=== PATIENT | female | born 1940 | race African-American/Black ===

== ENCOUNTER 2016-12-01 10:02 | Emergency (ER) | payer OTHER ==
[2016-12-01 10:23] VITALS: TEMP 98.9
--- NOTE | 2016-12-01 10:29 | PDOC ---
History of Present Illness - General Chief Complaint: Blood Pressure Problem Stated Complaint: high blood pressure Time Seen by Provider: 12/01/16 10:26 - History of Present Illness Initial Comments: 12/01/16 11:14 Patient is a 76 year old female with a history of HTN, Hypothyroid and Anxiety who presents with high blood pressure. Patient reports a bp of 208/81 at home prompting her presentation to the ED today. She reports taking her BP medication (atenolol, hydralazine) before presentation to the ED and her mp is now 172/59 . She states that she was concerned about the reasoning for her high BP. She also notes that she was scheduled to have a tooth extraction today. She denies any headache, fevers, chills, chest pain, SOB, abdominal pain , nausea, vomiting, or changes with urination or bowel movements. Past History - Past Medical History Allergies/Adverse Reactions: Allergies Allergy/AdvReac Type Severity Reaction Status Date / Time No Known Allergies Allergy Verified 12/01/16 10:16 Home Medications: Ambulatory Orders Atenolol [Tenormin -] 25 mg PO DAILY 03/27/15 Levothyroxine [Synthroid -] 50 mcg PO DAILY 03/27/15 Hydralazine HCl [Apresoline -] 50 mg PO DAILY 12/01/16 HTN: Yes Suicide Attempt (Hx): No Seizures: No Thyroid Disease: Yes - Psycho/Social/Smoking Cessation Hx Anxiety: No Suicidal Ideation: No Smoking History: Never smoked Have you smoked in the past 12 months: No Information on smoking cessation initiated: No Hx Alcohol Use: Yes (social) Drug/Substance Use Hx: No Substance Use Type: None Review of Systems - Review of Systems Constitutional: No: Chills, Fever, Weakness HEENTM: No: Nose Congestion, Throat Swelling Respiratory: No: Cough, Shortness of Breath, Wheezing Cardiac (ROS): No: Chest Pain, Palpitations, Chest Tightness ABD/GI: No: Constipated, Diarrhea, Nausea, Vomiting, Indigestion : No: Burning, Dysuria Integumentary: No: Rash Neurological: No: Headache, Tingling, Weakness *Physical Exam - Vital Signs Last Vital Signs Temp Pulse Resp BP Pulse Ox 98.9 F 63 17 172/59 98 12/01/16 10:11 12/01/16 10:11 12/01/16 10:11 12/01/16 10:11 12/01/16 10:11 - Physical Exam Comments: 12/01/16 11:22 General Appearance: Yes Nourished. No Apparent Distress HEENT: No Pharyngeal Erythema, Tonsillar Exudate, Tonsillar Erythema Respiratory/Chest: Lungs Clear, Normal Breath Sounds. No Crackles, Rales, Rhonchi, Wheezing Cardiovascular: Regular Rhythm, Regular Rate. No Murmur, Gallop/S3, Gallop/S4 Gastrointestinal/Abdominal: Normal Bowel Sounds, Soft. No Guarding, Rebound, Tenderness Extremity: Normal Capillary Refill Integumentary: Normal Color, Dry, Warm Neurologic: Fully Oriented, Alert, Normal Mood/Affect, Normal Response Medical Decision Making - Medical Decision Making 12/01/16 12:01 Patient is a 76 year old female with a history of HTN, hypothyroid, and anxiety who presents following a high blood pressure reading at home. Patient's BP improved after taking her bp medications and her repeat bp is currently 150s/ 70s. She is currently denying any other symptoms. We discussed that it is possible her high bp this morning was due to her meds not having been taken and her anxiety about her dental extraction. We feel comfortable discharging the patient home. She has follow up with her primary care provider tomorrow. She is agreeable to the plan. *DC/Admit/Observation/Transfer Diagnosis at time of Disposition: Hypertension Qualifiers: Hypertension type: unspecified Qualified Code(s): I10 - Essential (primary) hypertension - Discharge Dispostion Disposition: HOME Condition at time of disposition: Improved - Referrals Referrals: Altagracia Figueredo [Primary Care Provider] - - Patient Instructions Printed Discharge Instructions: DI for High Blood Pressure, How to Monitor Your Blood Pressure at Home Additional Instructions: Please return to the ER if you experience worsening or concerning symptoms. Please follow up with your primary care provider to discuss your ER visit. - Attestations Physician Attestion: 12/01/16 11:59 I, Dr. Unruly Haney, attest that this document has been prepared under my direction and personally reviewed by me in its entirety. I further attest, that it accurately reflects all work, treatment, procedures and medical decision -making performed by me.
--- NOTE | 2016-12-01 11:32 | PDOC ---
Attending Attestation - Resident Resident Name: Unruly Haney - ED Attending Attestation I have performed the following: I have examined & evaluated the patient, The case was reviewed & discussed with the resident, I agree w/resident's findings & plan, Exceptions are as noted - HPI HPI: 12/01/16 11:30 Agree with the resident's HPI as documented in the electronic medical record. - Physicial Exam PE: 12/01/16 11:30 Agree with the resident's physical examination as documented in the electronic medical record. - Medical Decision Making 12/01/16 11:30 76-year-old female with history of hypertension scheduled for a procedure this morning but was concerned because her blood pressure was markedly elevated at home. I have repeated the blood pressure manually in the emergency department and it is 155/68. The patient is asymptomatic and denies chest pain headache or any other complaints. Plan: 1. Discharge home 2. I have encouraged the patient to keep her follow-up appointment with her primary care physician, Dr. Suggs tomorrow as previously scheduled 3. I've advised the patient to return to the emergency department if her symptoms persist, worsen, or new symptoms arise. EKG shows sinus bradycardia at 55 bpm with a left bundle branch block and no acute ST segment changes; this is unchanged from prior EKG.
[2016-12-01 12:16] VITALS: BP 140/60; PULSE 54
--- NOTE | 2016-12-01 16:59 | EKG ---
Test Reason : Blood Pressure : / mmHG Vent. Rate : 054 BPM Atrial Rate : 054 BPM P-R Int : 208 ms QRS Dur : 126 ms QT Int : 478 ms P-R-T Axes : 080 -47 094 degrees QTc Int : 453 ms SINUS BRADYCARDIA LEFT AXIS DEVIATION LEFT BUNDLE BRANCH BLOCK ABNORMAL ECG WHEN COMPARED WITH ECG OF 25-JUL-2013 01:19, T WAVE VARIATION Confirmed by JEANIE JACOB MD ([id number]) on 12/01/2016 4:59:11 PM Referred By: Confirmed By:JEANIE JACOB MD
== END 2016-12-01 12:17 | disposition home or self-care (01) ==
LOC: JER 10:02
DX: I10 Essential (primary) hypertension (principal); E03.9 Hypothyroidism, unspecified; F41.9 Anxiety disorder, unspecified
CPT/HCPCS: 93005; 93010; 99283-25

== ENCOUNTER 2019-07-14 22:56 | Emergency (ER) | payer OTHER ==
[2019-07-14 23:06] VITALS: TEMP 98; BMI 23.4
[2019-07-14] MEDS ORDERED: ATENOLOL 25 MG TABLET (FP) PO ONE (23:49)
[2019-07-14] MEDS ORDERED: ATENOLOL 25 MG TABLET (FP) ONE (23:55)
[2019-07-15] MEDS ORDERED: ATENOLOL 25 MG TABLET (FP) PO ONE (00:15)
--- NOTE | 2019-07-15 00:15 | PDOC ---
History of Present Illness - General Chief Complaint: Blood Pressure Problem Stated Complaint: HBP/HEADACHE History Source: Patient Exam Limitations: No Limitations - History of Present Illness Initial Comments: 07/15/19 00:05 78 yo female pmh HTN, hypothyroidism and anxiety presents to the ED for 2 weeks of a persistent SOLANO, nausea without vomiting and elevated BP. Pt states she has had a constant, sharp, right sided SOLANO over the last 2 weeks and was told on a ENT evaluation 2 days ago the her BP was over 230 systolic. Pt denies any focal neurological changes including changes in vision, weakness or sensory changes, gait changes, confusion. Pt denies recent travel, sick contacts, fevers, CP, SOB , abdominal pain, back pain, changes in bowel or bladder habits 07/15/19 00:50 Pt admits to only taking amlodipine every 2 days when it is prescribed daily. Pt took amlodipine today but has not taken night time dose of Atenolol 50 mg as yet Past History - Past Medical History Allergies/Adverse Reactions: Allergies Allergy/AdvReac Type Severity Reaction Status Date / Time No Known Allergies Allergy Verified 07/14/19 23:06 Home Medications: Ambulatory Orders Atenolol [Tenormin -] 25 mg PO DAILY 03/27/15 Levothyroxine [Synthroid -] 50 mcg PO DAILY 03/27/15 hydrALAZINE HCL [Apresoline -] 50 mg PO DAILY 12/01/16 Amlodipine Besylate/Benazepril [Lotrel 10-20 mg Capsule] 1 cap PO DAILY Oxybutynin Chloride [Oxybutynin Chloride ER] 10 mg PO DAILY 07/15/19 COPD: No HTN: Yes Seizures: No Thyroid Disease: Yes - Immunization History Immunization Up to Date: Yes - Psycho Social/Smoking Cessation Hx Smoking History: Never smoked Have you smoked in the past 12 months: No Information on smoking cessation initiated: No Hx Alcohol Use: No Drug/Substance Use Hx: No Substance Use Type: None Review of Systems - Review of Systems Constitutional: Yes: See HPI HEENTM: Yes: See HPI Respiratory: Yes: See HPI Cardiac (ROS): Yes: See HPI ABD/GI: Yes: See HPI : Yes: See HPI Musculoskeletal: Yes: See HPI Integumentary: Yes: See HPI Neurological: Yes: See HPI *Physical Exam - Vital Signs Last Vital Signs Temp Pulse Resp BP Pulse Ox 98.0 F 62 18 211/87 H 100 07/14/19 23:04 07/14/19 23:04 07/14/19 23:04 07/14/19 23:04 07/14/19 23:04 - Physical Exam General Appearance: Yes: Nourished, Appropriately Dressed. No: Apparent Distress HEENT: positive: EOMI, MILTON, Normal Voice Neck: positive: Supple. negative: Carotid bruit Respiratory/Chest: positive: Chest Tender, Lungs Clear, Normal Breath Sounds. negative: Respiratory Distress, Accessory Muscle Use, Rapid RR, Crackles, Rales , Rhonchi, Stridor, Wheezing Cardiovascular: positive: Regular Rhythm, Regular Rate, S1, S2. negative: Edema , JVD, Murmur Vascular Pulses: Dorsalis-Pedis (R): 4+, Doralis-Pedis (L): 4+ Gastrointestinal/Abdominal: positive: Flat, Soft. negative: Pulsatile Mass, Distended, Guarding, Rebound, Tenderness Musculoskeletal: positive: Normal Inspection. negative: CVA Tenderness Extremity: positive: Normal Capillary Refill, Normal Inspection, Normal Range of Motion Integumentary: positive: Normal Color, Dry, Warm Neurologic: positive: metal neutralizer II-XII NML intact, Fully Oriented, Alert, Normal Mood/ Affect, Normal Response, Motor Strength 5/5. negative: Facial Droop, Numbness, Sensory Deficit, Confused, Disoriented ED Treatment Course - LABORATORY CBC & Chemistry Diagram: 07/15/19 00:30 07/15/19 00:30 - RADIOLOGY Radiology Studies Ordered: Category Date Time Status HEAD CT WITHOUT CONTRAST [CT] Stat CT Scan 07/14/19 23:50 Ordered Medical Decision Making - Medical Decision Making 07/15/19 02:11 78 yo female pmh HTN, hypothyroidism and anxiety presents to the ED for 2 weeks of a persistent SOLANO, nausea without vomiting and elevated BP. Pt states she has had a constant, sharp, right sided SOLANO over the last 2 weeks and was told on a ENT evaluation 2 days ago the her BP was over 230 systolic. Pt denies any focal neurological changes including changes in vision, weakness or sensory changes, gait changes, confusion. Pt denies recent travel, sick contacts, fevers, CP, SOB , abdominal pain, back pain, changes in bowel or bladder habits 07/15/19 00:50 Pt admits to only taking amlodipine every 2 days when it is prescribed daily. Pt took amlodipine today but has not taken night time dose of Atenolol 50 mg as yet vitals show elevated BP 218 systolic on my evaluation Pt given home dosed night prescribed Atenolol, BP now [address] neg for bleed/acute path Labs WNL, no end organ damage Given 650 tylenol for SOLANO with improvement in pain Pt has f/u with Dr. Figueredo in the morning and will discuss taking her medications as prescribed Pt safe for DC home with close f/u Discharge - Discharge Information Problems reviewed: Yes Clinical Impression/Diagnosis: Headache, Elevated blood pressure reading Condition: Stable Disposition: HOME - Admission No - Follow up/Referral Referrals: Altagracai Figueredo [Primary Care Provider] - - Patient Discharge Instructions Patient Printed Discharge Instructions: DI for High Blood Pressure, DI for Headache, How to Monitor Your Blood Pressure at Home Additional Instructions: Please see your Primary Doctor in the Morning for your appointment. Please take all of your home dosed medications as prescribed. Retunr to the ER for new or concerning symptoms. Thank you - Post Discharge Activity
[2019-07-15] MEDS ORDERED: ATENOLOL 25 MG TABLET (FP) ONE (00:17)
--- NOTE | 2019-07-15 00:44 | PDOC ---
Attending Attestation - Resident Resident Name: LouieRamesh - ED Attending Attestation I have performed the following: I have examined & evaluated the patient, The case was reviewed & discussed with the resident, I agree w/resident's findings & plan, Exceptions are as noted - HPI HPI: 07/15/19 00:40 78 yo F with h/o HTN here with c/o high blood pressure, headache for days , no n/v no vision changes . no cp no sob. did take her bp meds , as prescribed her pressure have been running high for a few days. - Physicial Exam PE: 07/15/19 00:41 awake alert lungs clear bilat heart rrr no mrg abd soft nt nd ext wwp. no edema. no calf tenderness. skin warm and dry. nuero alert oriented x 3. - Medical Decision Making 07/15/19 00:42 78 yo F with h/o htn here with high pressure, headache. will given pm meds. ct head r/o ich. labs r/o end organ damage. cxr ekg. EKG with no acute changes. TWI I, AVL, LBB old. comparison 2017 Heart Score/ECG Review #1 General ECG Interpretation: Sinus Rhythm, Normal Rate (59), Normal Intervals, No acute ischemic changes (TWI I, AVL)
[2019-07-15 00:52] LABS: BASO % 1.7 % (0-2.0); EOS % 1.8 % (0-4.5); HEMATOCRIT 39.1 % (32.4-45.2); HEMOGLOBIN 13.2 GM/dL (10.7-15.3); LYMPH % 29.7 % (8-40); MCH 29.3 pg (25.7-33.7); MCHC 33.8 g/dl (32.0-36.0); MEAN CELL VOLUME 86.7 fl (80-96); MEAN PLT VOLUME 8.9 fl (7.5-11.1); MONO % 12.5 % (3.8-10.2); NEUT % 54.3 % (42.8-82.8); PLATELET COUNT 222 K/MM3 (134-434); RBC 4.51 M/mm3 (3.60-5.2); RDW 14.7 % (11.6-15.6)
[2019-07-15 00:57] LABS: URINE APPEARANCE Clear; URINE BILIRUBIN Negative (NEGATIVE); URINE COLOR Yellow; URINE GLUCOSE (UA) Negative (NEGATIVE); URINE KETONE Negative (NEGATIVE); URINE LEUK ESTERASE Trace (NEGATIVE); URINE NITRITE Negative (NEGATIVE); URINE PROTEIN Negative (NEGATIVE); URINE UROBILINOGEN 0.2 mg/dL (0.2-1.0)
[2019-07-15 01:04] LABS: INR 1.02 (0.83-1.09)
[2019-07-15 01:24] LABS: ALBUMIN 3.8 g/dl (3.4-5.0); ALK PHOS 47 U/L (45-117); ANION GAP 6 MMOL/L (8-16); BILIRUBIN,TOTAL 0.7 mg/dL (0.2-1); BLOOD UREA NITROGEN 10.4 mg/dL (7-18); CALCIUM 8.5 mg/dL (8.5-10.1); CHLORIDE 106 mmol/L (98-107); CO2 28 mmol/L (21-32); CREATININE 1.1 mg/dL (0.55-1.3); GLUCOSE,RANDOM 100 mg/dL (74-106); POTASSIUM 3.4 mmol/L (3.5-5.1); SGOT/AST 28 U/L (15-37); SGPT/ALT 27 U/L (13-61); SODIUM 140 mmol/L (136-145); TOT PROT 7.2 g/dl (6.4-8.2)
[2019-07-15 01:30] LABS: EPI CELLS 7 /HPF (0-5/HPF); HYALINE CASTS 1 /lpf (0-8); URINE BACTERIA 4 /hpf (NEGATIVE); URINE RBC 2 /hpf (0-4); URINE WBC 2 /hpf (0-5)
[2019-07-15] MEDS ORDERED: ACETAMINOPHEN 325 MG TABLET (FP) PO ONE (02:10)
[2019-07-15] MEDS ORDERED: ACETAMINOPHEN 325 MG TABLET (FP) ONE (02:16)
[2019-07-15 03:06] VITALS: BP 166/61; PULSE 58
--- NOTE | 2019-07-15 11:25 | EKG ---
Test Reason : Blood Pressure : / mmHG Vent. Rate : 059 BPM Atrial Rate : 059 BPM P-R Int : 198 ms QRS Dur : 124 ms QT Int : 470 ms P-R-T Axes : 080 -53 090 degrees QTc Int : 465 ms SINUS BRADYCARDIA LEFT BUNDLE BRANCH BLOCK LEFT AXIS DEVIATION ANTEROSEPTAL INFARCT , AGE UNDETERMINED ABNORMAL ECG Confirmed by PEPITO QUINONES MD ([id number]) on 07/15/2019 11:25:39 AM Referred By: Confirmed By:PEPITO QUINONES MD
== END 2019-07-15 03:04 | disposition home or self-care (01) ==
LOC: JER 22:56
DX: I10 Essential (primary) hypertension (principal); R51 Headache; E03.9 Hypothyroidism, unspecified
CPT/HCPCS: 36415; 70450-TC; 80053; 81003; 82550; 82553; 84484; 85025; 85610; 93005; 93010; 99285-25

== ENCOUNTER 2023-11-01 02:05 | Inpatient (IN) | payer OTHER ==
[2023-11-01] MEDS ORDERED: dilTIAZem HCL 125 MG/25 ML - 25 ML VIAL ONE (02:32)
[2023-11-01] MEDS: dilTIAZem HCL 50 MG/10 ML - 10 ML VIAL IVPUSH ONE (02:41)
[2023-11-01 02:50] LABS: BASO % 0.9 % (0-2.0); EOS % 0.6 % (0-4.5); LYMPH % 20.1 % (8-40); MCH 28.9 pg (25.7-33.7); MCHC 33.3 g/dl (32.0-36.0); MEAN CELL VOLUME 86.7 fl (80-96); MEAN PLT VOLUME 8.4 fl (7.5-11.1); MONO % 9.5 % (3.8-10.2); NEUT % 68.9 % (42.8-82.8); PLATELET COUNT 262 10^3/uL (134-434); RDW 14.7 % (11.6-15.6); WHITE BLOOD COUNT 5.9 K/mm3 (4.0-10.0)
[2023-11-01 02:58] LABS: POTASSIUM 3.1 mmol/L (3.5-5.1)
[2023-11-01 03:00] LABS: ALBUMIN 3.9 g/dl (3.4-5.0); BLOOD UREA NITROGEN 13.7 mg/dL (7-18); CALCIUM 8.6 mg/dL (8.5-10.1)
[2023-11-01 03:03] LABS: CREATININE 1.1 mg/dL (0.55-1.3)
[2023-11-01 03:05] LABS: BILIRUBIN,TOTAL 0.7 mg/dL (0.2-1); TOT PROT 7.7 g/dl (6.4-8.2)
[2023-11-01] MEDS ORDERED: dilTIAZem HCL 30 MG TABLET ONE ×2 (03:06→08:08)
[2023-11-01] MEDS ORDERED: POTASSIUM CHLORIDE ORAL LIQUID 20 MEQ/15 ML ONE ×2 (03:06→05:43)
[2023-11-01] MEDS: dilTIAZem HCL 30 MG TABLET PO ONE (03:12)
[2023-11-01] MEDS: POTASSIUM CHLORIDE ORAL LIQUID 20 MEQ/15 ML PO ONE ×2 (03:12→05:48)
[2023-11-01 04:18] LABS: N-TERMINAL BNP 1252.4 pg/ml (5-450)
[2023-11-01 05:45] LABS: EPI CELLS 2 /uL (0-25.1); HYALINE CASTS 0 /uL (0-3.1); URINE APPEARANCE CLEAR; URINE BACTERIA 33 /uL (0-1359); URINE BILIRUBIN NEGATIVE (NEGATIVE); URINE COLOR YELLOW; URINE GLUCOSE (UA) NEGATIVE (NEGATIVE); URINE KETONE 1+ (NEGATIVE); URINE LEUK ESTERASE 1+ (NEGATIVE); URINE NITRITE NEGATIVE (NEGATIVE); URINE PROTEIN NEGATIVE (NEGATIVE); URINE RBC 9 /uL (0-23.9); URINE UROBILINOGEN 0.2 mg/dL (0.2-1.0); URINE WBC 14 /uL (0-25.8)
[2023-11-01] MEDS ORDERED: dilTIAZem HCL 30 MG TABLET PO SCH (06:00)
[2023-11-01 06:31] LABS: BASO % 1.4 % (0-2.0); EOS % 0.1 % (0-4.5); HEMATOCRIT 39.6 % (32.4-45.2); LYMPH % 13.8 % (8-40); MCH 28.4 pg (25.7-33.7); MCHC 32.7 g/dl (32.0-36.0); MEAN CELL VOLUME 86.9 fl (80-96); MEAN PLT VOLUME 7.9 fl (7.5-11.1); NEUT % 78.7 % (42.8-82.8); PLATELET COUNT 260 10^3/uL (134-434); RBC 4.55 M/mm3 (3.60-5.2); RDW 14.9 % (11.6-15.6); WHITE BLOOD COUNT 5.6 K/mm3 (4.0-10.0)
[2023-11-01 06:34] LABS: MAGNESIUM 2.3 mg/dL (1.8-2.4)
[2023-11-01 06:39] LABS: INR 1.01 (0.83-1.09); PROTHROMBIN TIME (PATIENT) 11.4 SEC (9.7-13.0)
[2023-11-01 06:49] LABS: POTASSIUM 4.9 mmol/L (3.5-5.1)
[2023-11-01 06:51] LABS: CALCIUM 8.2 mg/dL (8.5-10.1)
[2023-11-01 06:52] LABS: MAGNESIUM 2.3 mg/dL (1.8-2.4)
[2023-11-01 06:54] LABS: ALBUMIN 3.8 g/dl (3.4-5.0); BLOOD UREA NITROGEN 11.7 mg/dL (7-18)
[2023-11-01 06:56] LABS: CREATININE 0.9 mg/dL (0.55-1.3)
[2023-11-01 06:57] LABS: PHOSPHOROUS 2.3 mg/dL (2.5-4.9); TOT PROT 7.5 g/dl (6.4-8.2)
[2023-11-01 06:58] LABS: BILIRUBIN,TOTAL 0.8 mg/dL (0.2-1)
[2023-11-01] MEDS ORDERED: NAPH,MB-DB/K PH,MBDB POWDER PACKET ONE (08:08)
[2023-11-01] MEDS: dilTIAZem HCL 30 MG TABLET PO SCH (08:14)
[2023-11-01] MEDS: NAPH,MB-DB/K PH,MBDB POWDER PACKET PO ONE (08:14)
[2023-11-01 08:59] VITALS: BMI 32.3
[2023-11-01] MEDS: APIXABAN 5 MG TABLET PO SCH (09:49)
[2023-11-02] MEDS: LEVOTHYROXINE NA 75 MCG TABLET (FP) PO SCH (06:14)
[2023-11-02] MEDS: FUROSEMIDE 40 MG/4 ML INJECTABLE VIAL IVPUSH ONE (06:14)
[2023-11-02 06:54] LABS: POTASSIUM 3.7 mmol/L (3.5-5.1)
[2023-11-02 07:04] LABS: CALCIUM 8.1 mg/dL (8.5-10.1)
[2023-11-02 07:05] LABS: ALBUMIN 3.6 g/dl (3.4-5.0); BLOOD UREA NITROGEN 9.1 mg/dL (7-18); MAGNESIUM 2.2 mg/dL (1.8-2.4)
[2023-11-02 07:08] LABS: BILIRUBIN,TOTAL 1.1 mg/dL (0.2-1); CREATININE 0.9 mg/dL (0.55-1.3); PHOSPHOROUS 3.3 mg/dL (2.5-4.9); TOT PROT 7.2 g/dl (6.4-8.2)
[2023-11-02 07:46] LABS: BASO % 1.1 % (0-2.0); HEMATOCRIT 40.8 % (32.4-45.2); HEMOGLOBIN 13.5 GM/dL (10.7-15.3); LYMPH % 23.4 % (8-40); MCH 28.4 pg (25.7-33.7); MCHC 33.2 g/dl (32.0-36.0); MEAN CELL VOLUME 85.5 fl (80-96); MEAN PLT VOLUME 8.4 fl (7.5-11.1); MONO % 11.1 % (3.8-10.2); NEUT % 63.4 % (42.8-82.8); PLATELET COUNT 250 10^3/uL (134-434); RBC 4.77 M/mm3 (3.60-5.2); RDW 15.2 % (11.6-15.6); WHITE BLOOD COUNT 5.4 K/mm3 (4.0-10.0)
[2023-11-02] MEDS ORDERED: dilTIAZem HCL 125 MG/25 ML - 25 ML VIAL ONE (09:27)
[2023-11-02] MEDS ORDERED: METOPROLOL TARTRATE 5 MG/5 ML VIAL ONE (09:33)
[2023-11-02] MEDS: METOPROLOL TARTRATE 5 MG/5 ML VIAL IVPUSH ONE (09:57)
[2023-11-02] MEDS: dilTIAZem HCL 25 MG/5 ML - 5 ML VIAL IVPUSH ONE (09:58)
[2023-11-02] MEDS: POTASSIUM CHLORIDE ORAL LIQUID 20 MEQ/15 ML PO ONE (10:00)
[2023-11-02] MEDS: metoPROLOL SUCCINATE 25 MG TAB.SR.24H (FP) PO SCH (11:18)
[2023-11-03] MEDS: LEVOTHYROXINE NA 50 MCG TABLET (FP) PO SCH (06:01)
[2023-11-03 06:30] LABS: HEMATOCRIT 42.1 % (32.4-45.2); HEMOGLOBIN 13.7 GM/dL (10.7-15.3); MCH 28.4 pg (25.7-33.7); MCHC 32.6 g/dl (32.0-36.0); MEAN PLT VOLUME 8.3 fl (7.5-11.1); PLATELET COUNT 255 10^3/uL (134-434); RBC 4.84 M/mm3 (3.60-5.2); WHITE BLOOD COUNT 5.8 K/mm3 (4.0-10.0)
[2023-11-03 06:48] LABS: POTASSIUM 3.8 mmol/L (3.5-5.1)
[2023-11-03 06:49] LABS: BLOOD UREA NITROGEN 17.5 mg/dL (7-18); CALCIUM 8.6 mg/dL (8.5-10.1)
[2023-11-03 06:51] LABS: ALBUMIN 3.4 g/dl (3.4-5.0); MAGNESIUM 2.2 mg/dL (1.8-2.4)
[2023-11-03 06:53] LABS: PHOSPHOROUS 3.6 mg/dL (2.5-4.9)
[2023-11-03 06:55] LABS: BILIRUBIN,TOTAL 0.9 mg/dL (0.2-1); TOT PROT 6.9 g/dl (6.4-8.2)
[2023-11-03] MEDS: LISINOPRIL 20 MG TABLET PO SCH (08:26)
[2023-11-03 13:14] VITALS: PULSE 62
[2023-11-03 15:43] VITALS: BP 149/65; RESP 60; TEMP 98.6
== END 2023-11-03 15:58 | disposition home health service (06) | DRG 308 ==
LOC: JER 02:05 → JERBED 03:11 → OBSVTOIN 03:11 → J2W 08:55
PROVIDERS: ADMIT Internal Medicine; ATTEND Internal Medicine
DX: I48.91 Unspecified atrial fibrillation (principal); I50.31 Acute diastolic (congestive) heart failure; J90 Pleural effusion, not elsewhere classified; I24.89 Other forms of acute ischemic heart disease; I10 Essential (primary) hypertension; E03.9 Hypothyroidism, unspecified; E87.6 Hypokalemia; I11.0 Hypertensive heart disease with heart failure
CPT/HCPCS: 36415; 71045-TC-FY; 80053; 80061; 81003; 83036; 83735; 83880; 84100; 84439; 84443; 84484; 85025; 85027; 85610; 87635; 93005; 93010; 93306-TC; 97116-GP; 97161-GP; 99291

== ENCOUNTER 2024-12-12 02:13 | Observation (INO) | payer OTHER ==
[2024-12-12 03:58] LABS: ABSOLUTE IMMATURE GRANULOCYTES 0.05 x10^3/uL (0.0-0.031); BASOPHILS # 0.07 x10^3/uL (0.01-0.08); EOSINOPHIL % 1.6 % (0.7-5.8); EOSINOPHILS # 0.10 x10^3/uL (0.04-0.36); MCHC 31.9 g/dl (32.2-35.5); MEAN CELL VOLUME 85.0 fl (79.4-94.8); MEAN PLT VOLUME 9.8 fl (9.4-12.3); MONOCYTE # 0.79 x10^3/uL (0.24-0.86); MONOCYTE % 12.9 % (4.7-12.5); RDW 17.2 % (12.5-17.0)
[2024-12-12 04:13] LABS: INR 1.36 (0.83-1.09); PROTHROMBIN TIME (PATIENT) 15.0 SEC (9.7-13.0)
[2024-12-12 04:16] LABS: ACTIVATED PTT 30.1 SECONDS (25.2-36.5)
[2024-12-12 04:52] LABS: CO2 26.0 mmol/L (21-32); GLUCOSE,RANDOM 96.0 mg/dL (74-106)
[2024-12-12 04:54] LABS: SGPT/ALT 23.0 U/L (13-61)
[2024-12-12 04:55] LABS: CREATININE 1.3 mg/dL (0.55-1.3); SGOT/AST 22.0 U/L (15-37)
[2024-12-12 04:56] LABS: TOT PROT 8.1 g/dl (6.4-8.2)
[2024-12-12 04:57] LABS: ALK PHOS 63.0 U/L (45-117)
[2024-12-12 04:59] LABS: N-TERMINAL BNP 1529.8 pg/ml (5-450)
[2024-12-12 05:44] LABS: HCV DIAGNOSTIC IN-HOUSE W/RFLX NON-REACTIVE (NONREACTIVE)
[2024-12-12 05:45] LABS: HIV INTERPRETATION NEGATIVE (NEGATIVE)
[2024-12-12 19:31] LABS: URINE APPEARANCE CLEAR; URINE BILIRUBIN NEGATIVE (NEGATIVE); URINE COLOR YELLOW; URINE GLUCOSE (UA) 3+ (NEGATIVE); URINE KETONE NEGATIVE (NEGATIVE); URINE LEUK ESTERASE NEGATIVE (NEGATIVE); URINE NITRITE NEGATIVE (NEGATIVE); URINE PROTEIN TRACE (NEGATIVE); URINE UROBILINOGEN 0.2 mg/dL (0.2-1.0)
[2024-12-12 20:45] VITALS: RESP 18
[2024-12-12] MEDS ORDERED: APIXABAN 2.5 MG TABLET ONE (20:54)
[2024-12-12] MEDS ORDERED: hydrALAZINE HCL 50 MG TABLET (FP) ONE (20:55)
[2024-12-12] MEDS: hydrALAZINE HCL 50 MG TABLET (FP) PO SCH (21:00)
[2024-12-12] MEDS: APIXABAN 2.5 MG TABLET PO SCH (21:00)
[2024-12-12] MEDS ORDERED: METOPROLOL TARTRATE 50 MG TABLET (FP) PO SCH ×2 (22:00)
[2024-12-12] MEDS ORDERED: FUROSEMIDE 20 MG TABLET (FP) ONE (22:03)
[2024-12-12] MEDS: FUROSEMIDE 20 MG TABLET (FP) PO SCH (22:06)
[2024-12-13 05:17] VITALS: BMI 24.4
[2024-12-13] MEDS: LEVOTHYROXINE NA 75 MCG TABLET (FP) PO SCH (06:57)
[2024-12-13] MEDS ORDERED: LEVOTHYROXINE NA 75 MCG TABLET (FP) PO SCH (07:00)
[2024-12-13 07:55] LABS: ABSOLUTE IMMATURE GRANULOCYTES 0.03 x10^3/uL (0.0-0.031); BASOPHILS # 0.05 x10^3/uL (0.01-0.08); EOSINOPHIL % 1.8 % (0.7-5.8); EOSINOPHILS # 0.09 x10^3/uL (0.04-0.36); MCHC 31.3 g/dl (32.2-35.5); MEAN CELL VOLUME 85.0 fl (79.4-94.8); MEAN PLT VOLUME 10.8 fl (9.4-12.3); MONOCYTE # 0.71 x10^3/uL (0.24-0.86); MONOCYTE % 13.9 % (4.7-12.5); RDW 17.2 % (12.5-17.0)
[2024-12-13 08:54] LABS: CO2 28.0 mmol/L (21-32); GLUCOSE,RANDOM 86.0 mg/dL (74-106)
[2024-12-13 08:57] LABS: CREATININE 1.4 mg/dL (0.55-1.3); SGPT/ALT 19.0 U/L (13-61)
[2024-12-13 08:58] LABS: SGOT/AST 19.0 U/L (15-37)
[2024-12-13 08:59] LABS: TOT PROT 7.3 g/dl (6.4-8.2)
[2024-12-13 09:00] LABS: ALK PHOS 53.0 U/L (45-117)
[2024-12-13] MEDS: AMIODARONE HCL 200 MG TABLET PO SCH (09:17)
[2024-12-13] MEDS ORDERED: APIXABAN 2.5 MG TABLET PO SCH (10:00)
[2024-12-13] MEDS ORDERED: amLODIPine BESYLATE 10 MG TABLET (FP) PO SCH (10:00)
[2024-12-13 16:05] VITALS: BP 154/68; PULSE 65; TEMP 97.3
== END 2024-12-13 18:11 | disposition home or self-care (01) ==
LOC: JER 02:13 → JERBED 11:34 → J6W TELE 23:03
PROVIDERS: ADMIT Internal Medicine; ATTEND Internal Medicine
DX: R00.1 Bradycardia, unspecified (principal); I11.0 Hypertensive heart disease with heart failure; I50.33 Acute on chronic diastolic (congestive) heart failure; I48.91 Unspecified atrial fibrillation; I25.10 Atherosclerotic heart disease of native coronary artery without angina pectoris; I44.0 Atrioventricular block, first degree; I44.7 Left bundle-branch block, unspecified; I49.3 Ventricular premature depolarization; E03.9 Hypothyroidism, unspecified; I25.2 Old myocardial infarction; I83.91 Asymptomatic varicose veins of right lower extremity; Z79.01 Long term (current) use of anticoagulants
CPT/HCPCS: 36415; 71045-TC-FY; 80053; 81003; 83735; 83880; 84100; 84443; 84484; 85025; 85610; 85730; 86618; 86803; 87389; 87637-QW; 93005; 93010; 93970-TC; 97116-GP; 97161-GP; 99285-25; G0378